=== PATIENT | male | born 1950 | race Caucasian/White ===

== ENCOUNTER 2019-12-11 16:37 | Inpatient (IN) ==
[2019-12-11] MEDS ORDERED: 0.9 % SODIUM CHLORIDE 1,000 ML IV ONE (18:06)
--- NOTE | 2019-12-11 18:25 | XRay Report ---
CLINICAL INFORMATION: weakness, fatigue COMPARISON: 09/09/2019 FINDINGS: Heart size, mediastinum and pulmonary vessels are normal. Minor bibasilar airspace disease likely atelectasis. No effusions IMPRESSION: Minor bibasilar atelectasis Interpreted and Authenticated by: Simon Horta 12/11/19
--- NOTE | 2019-12-11 18:55 | Emergency Department Note ---
Weakness HPI - General Chief complaint: Cold/Flu Symptoms Stated complaint: Possible hernia,generalized weakness Time Seen by Provider: 12/11/19 18:06 Source: patient Mode of arrival: ambulatory Limitations: no limitations - History of Present Illness HPI Narrative: 69-year-old male complaining of general malaise fatigue for the last day or so. Unclear if he has had a fever. No cough but notes chronic shortness of breath with known COPD. Not on oxygen. Not been eating or drinking much. His arthritis is been acting up as well and he is having some pain in his elbows which is mild Also complaining of a new hernia in his left groin - Related Data Home Medications Medication Instructions Recorded Confirmed albuterol sulfate 90 mcg/actuation 1 puff INHALATION Q4H PRN g 10/01/17 12/11/19 aerosol inhaler multivitamin 1 tab PO QDAY 07/22/18 12/11/19 hydrocodone 10 mg-acetaminophen 1 tab PO QID PRN 10/30/18 12/11/19 325 mg tablet sertraline 100 mg tablet 100 mg PO QDAY 10/30/18 12/11/19 apixaban 5 mg tablet 5 mg PO BID 12/26/18 12/11/19 cetirizine 10 mg tablet 10 mg PO QDAY PRN tab 06/25/19 12/11/19 losartan 25 mg tablet 25 mg PO BID tab 08/27/19 12/11/19 verapamil 120 mg tablet 120 mg PO QDAY PRN tab 08/27/19 12/11/19 Previous Rx's Medication Instructions Recorded budesonide-formoterol HFA 160 2 puff INHALATION BID #30.6 g 02/25/19 mcg-4.5 mcg/actuation aerosol inhaler tiotropium bromide 18 mcg capsule 1 cap INHALATION QDAY #90 puff 06/25/19 with inhalation device folic acid 1 mg tablet 1 mg PO QDAY #30 tab 08/26/19 methotrexate sodium 2.5 mg tablet 20 mg PO QWEEK #32 tab 08/26/19 etanercept 50 mg/mL (1 mL) 50 mg SUBCUT QWEEK #3.92 ml 10/19/19 subcutaneous syringe Allergies Allergy/AdvReac Type Severity Reaction Status Date / Time House Dust AdvReac Congested Verified 12/11/19 16:37 hay fever AdvReac Intermediate Watery Eye Uncoded 03/25/19 08:09 Review of Systems All systems ED: reviewed and negative except as stated. Past Medical History - Past Medical History Attestation: Yes: The following information was validated with the patient. [facility] Narrative: Family History (Last Reviewed 10/19/19 @ 10:52 by SCARLETT Gamble) Mother Cancer Malignant tumor of breast Father Diabetes mellitus Medical History (Last Reviewed 10/19/19 @ 10:52 by SCARLETT Gamble) Encounter for long-term current use of high risk medication (Acute) Immunocompromised state due to drug therapy (Chronic) Rheumatoid arthritis (Acute) CHF (congestive heart failure) (Chronic) Chronic renal failure, stage 3 (moderate) (Chronic) Chronic obstructive lung disease (Chronic) Sepsis (Chronic) Essential hypertension (Chronic) Hyperlipidemia (Chronic) Trigger finger of right hand (Acute) Tubulovillous adenoma (Chronic) History of chicken pox (Chronic) History of tobacco abuse (Chronic) Prediabetes (Chronic) Dysphagia (Chronic) Rectal polyp (Chronic) Acute exacerbation of chronic obstructive pulmonary disease (COPD) (Chronic) Allergic rhinitis (Chronic) Hereditary essential tremor (Chronic) Depressive disorder (Chronic) Overweight (Chronic) Hoarseness of voice (Chronic) History of alcoholism (Chronic) Pneumonitis (Chronic) GERD (gastroesophageal reflux disease) (Chronic) Adenomatous polyp of colon (Chronic) Renal failure (Chronic) Bilateral pleural effusion (Chronic) Osteomyelitis of right foot (Chronic) Positive nasal culture for methicillin resistant Staphylococcus aureus (Chronic) Tarsal tunnel syndrome of right side (Chronic) Left rotator cuff tear (Chronic) Arthritis of right shoulder region (Chronic) Arthritis of right subtalar joint (Chronic) Ankle fracture, right (Chronic) Asthma (Chronic) Knee pain, bilateral (Chronic) detention (current) use of systemic steroids (Chronic) CRP elevated (Chronic) Polyarthralgia (Acute) Inflammatory arthritis (Chronic) Supraspinatus tendon tear (Chronic) Ankle joint pain (Chronic) Shoulder joint pain (Chronic) Arthritis (Chronic) Localized, primary osteoarthritis of hand (Chronic) Atrial flutter (Chronic) Paroxysmal atrial fibrillation (Chronic) Hearing loss (Chronic) Cataract (Chronic) Tobacco dependence syndrome (Chronic) Serrated polyp of colon (Chronic) Basal cell carcinoma of skin (Chronic) Elevated erythrocyte sedimentation rate (Chronic) Past Surgical History (Last Reviewed 10/19/19 @ 10:52 by SCARLETT Gamble) History of appendectomy (Chronic 02/11/16) History of colonoscopy (Chronic 02/10/16) History of esophagogastroduodenoscopy (Chronic ~2015) History of incision and drainage (Chronic) History of inguinal hernia repair (Chronic ~2000) History of lung surgery (Chronic) History of orthopedic surgery (Chronic ~2016) History of surgery (Chronic) History of tonsillectomy (Chronic) S/P debridement (Chronic) S/p reverse total shoulder arthroplasty (Chronic 05/01/16) Psychiatric history: Reports: anxiety, depression - Social History smoking status: Former smoker Alcohol use: Reports: Rarely Drug use: Reports: none. Denies: marijuana Physical Exam He is able to sit up stand and move around without difficulty. Normocephalic atraumatic. Conjunctive are clear sclera white nonicteric. No nasal discharge or congestion. Oropharynx dry buccal mucosa. Posterior pharynx is clear. Neck is supple without lymphadenopathy or thyromegaly. Heart is regular rate and rhythm no murmur appreciated. Lungs are clear to auscultation bilaterally without wheezes rales rhonchi or respiratory distress. Abdomen is soft nontender nondistended. It does look like he has a new hernia on the left groin area which is mildly tender but not erythematous. It is reducible. No pedal edema. Alert and oriented Limitations: no limitations Course Vital Signs Temperature 97.8 F 12/11/19 16:37 Pulse Rate 70 12/11/19 16:37 Respiratory Rate 20 12/11/19 16:37 Blood Pressure 124/78 12/11/19 16:37 Pulse Oximetry (%) 95 12/11/19 16:37 Temperature 98.3 F 12/12/19 00:00 Pulse Rate 53 L 12/12/19 00:00 Respiratory Rate 20 12/12/19 00:00 Blood Pressure 117/67 12/12/19 00:00 Pulse Oximetry (%) 94 12/12/19 00:00 Weakness - Lab Data Lab results reviewed: Yes I reviewed the patient's lab results. Result diagrams: 12/11/19 18:20 12/11/19 18:20 Lab Results 12/11/19 12/11/19 12/11/19 Range/Units 18:20 18:20 18:20 WBC 18.8 H (4.50-11.00) K/mcL RBC 5.09 (4.63-6.08) M/mcL Hgb 13.8 (13.7-17.5) g/dL Hct 43.8 (40.1-51.0) % MCV 86.1 (80.0-100.0) fL MCH 27.1 (26.0-34.0) pg MCHC 31.5 (31.0-36.0) g/dL RDW 17.4 H (11.5-14.5) % Plt Count 278 (140-440) K/mcL MPV 10.6 H (7.4-10.4) fL Gran % 79.2 H (38.0-78.0) % Lymph % (Auto) 11.0 L (15.5-49.0) % [place] % (Auto) 9.3 (1.0-12.0) % Eos % (Auto) 0.2 (0.0-7.0) % Baso % (Auto) 0.3 (0.0-2.0) % Gran # 14.87 H (1.80-8.00) K/mcL Lymph # (Auto) 2.06 (1.50-4.80) K/mcL [place] # (Auto) 1.74 H (0.10-0.90) K/mcL Eos # (Auto) 0.03 (0.00-0.70) K/mcL Baso # (Auto) 0.06 (0.00-0.30) K/mcL VBG Lactic Acid 0.6 (0.5-2.0) mmol/L Sodium 134 (133-145) mmol/L Potassium 4.0 (3.3-5.1) mmol/L Chloride 101 (96-108) mmol/L Carbon Dioxide 20 L (22-30) mmol/L Anion Gap 13.0 (8-16) BUN 16 (8-23) mg/dl Creatinine 0.9 (0.7-1.2) mg/dl GFR Calculation 87 Glucose 105 (70-105) mg/dL Calcium 8.7 (8.6-10.4) mg/dl Magnesium 1.9 (1.6-2.5) mg/dL Total Bilirubin 0.4 (0.0-1.0) mg/dL AST 25 (0-37) U/l ALT 23 (0-40) U/l Alkaline Phosphatase 82 (39-117) U/L Troponin T (0-0.03) ng/ml NT-Pro-B Natriuret Pep 426.5 H (0-125) pg/ml Total Protein 7.2 (5.9-8.4) gm/dL Albumin 4.2 (3.2-5.2) gm/dL Globulin 3.0 (2.2-3.7) gm/dL Albumin/Globulin Ratio 1.4 (1.0-2.3) 12/11/19 Range/Units 18:20 WBC (4.50-11.00) K/mcL RBC (4.63-6.08) M/mcL Hgb (13.7-17.5) g/dL Hct (40.1-51.0) % MCV (80.0-100.0) fL MCH (26.0-34.0) pg MCHC (31.0-36.0) g/dL RDW (11.5-14.5) % Plt Count (140-440) K/mcL MPV (7.4-10.4) fL Gran % (38.0-78.0) % Lymph % (Auto) (15.5-49.0) % [place] % (Auto) (1.0-12.0) % Eos % (Auto) (0.0-7.0) % Baso % (Auto) (0.0-2.0) % Gran # (1.80-8.00) K/mcL Lymph # (Auto) (1.50-4.80) K/mcL [place] # (Auto) (0.10-0.90) K/mcL Eos # (Auto) (0.00-0.70) K/mcL Baso # (Auto) (0.00-0.30) K/mcL VBG Lactic Acid (0.5-2.0) mmol/L Sodium (133-145) mmol/L Potassium (3.3-5.1) mmol/L Chloride (96-108) mmol/L Carbon Dioxide (22-30) mmol/L Anion Gap (8-16) BUN (8-23) mg/dl Creatinine (0.7-1.2) mg/dl GFR Calculation Glucose (70-105) mg/dL Calcium (8.6-10.4) mg/dl Magnesium (1.6-2.5) mg/dL Total Bilirubin (0.0-1.0) mg/dL AST (0-37) U/l ALT (0-40) U/l Alkaline Phosphatase (39-117) U/L Troponin T < 0.01 (0-0.03) ng/ml NT-Pro-B Natriuret Pep (0-125) pg/ml Total Protein (5.9-8.4) gm/dL Albumin (3.2-5.2) gm/dL Globulin (2.2-3.7) gm/dL Albumin/Globulin Ratio (1.0-2.3) Influenza swabs are negative - Radiology Data Radiology results reviewed: Yes I reviewed the patient's radiology results. Chest x-ray shows no evidence of infiltrate CT scan in the abdomen and pelvis with contrast shows sigmoid colon and a left inguinal hernia which is where he is having pain. No evidence of obstruction seen. He does have some calcifications of his gallbladder as well but he is not having pain in the right upper quadrant - EKG Data EKG attestation: Yes I reviewed and interpreted this EKG., Yes There are no EKG findings of acute coronary syndrome, Yes This EKG will be read by light fixture servicer EKG results narrative: Sinus bradycardia noted Disposition Pt seen by FLORICULTURE PROFESSOR/PA only: No Clinical Impression: Incarcerated hernia Summary: Work-up for general malaise and weakness. Chest x-ray and EKG unrevealing flu swab ordered Flu swab is negative. Laboratory is unrevealing except for significant leukocytosis. Lactic acid is pending CT scan is ordered for the significant leukocytosis as I do not have another r roya for that. I reexamined his belly and he still operator brandy in the left lower quadrant without erythema. Obvious hernia there. He is mildly diaphoretic CT scan shows large direct left inguinal hernia with sigmoid colon there. No evidence of obstruction. Vital signs remained stable-always has a low pulse and reports a heart rate of 40 is not uncommon for him. It is noted that he is on Enbrel as well as methotrexate for rheumatoid arthritis; apixaban for atrial flutter I discussed the case with Dr. Mark Schaefer, general surgeon. He agreed to accept the patient for further care and evaluation in the hospital. He expects to have to do surgery on this patient in the morning so he asked me to keep him n.p.o. We will do Zosyn to cover him in case of infection as well as keep him comforta ble with pain medicine nausea medicine and IV fluids. I will write holding orders Disposition: Home, Self-Care Condition: Fair
[2019-12-11 19:25] LABS: Basophils # (Auto) 0.06 K/mcL (0.00-0.30); Basophils % (Auto) 0.3 % (0.0-2.0); Eosinophils # (Auto) 0.03 K/mcL (0.00-0.70); Eosinophils % (Auto) 0.2 % (0.0-7.0); Granulocytes % (Auto) 79.2 % (38.0-78.0); Hematocrit 43.8 % (40.1-51.0); Hemoglobin 13.8 g/dL (13.7-17.5); Lymphocytes # (Auto) 2.06 K/mcL (1.50-4.80); Mean Cell Volume 86.1 fL (80.0-100.0); Mean Corpuscular HGB Conc 31.5 g/dL (31.0-36.0); Mean Platelet Volume 10.6 fL (7.4-10.4); Monocytes # (Auto) 1.74 K/mcL (0.10-0.90); Monocytes % (Auto) 9.3 % (1.0-12.0); Platelet Count 278 K/mcL (140-440); RBC 5.09 M/mcL (4.63-6.08); Red Cell Distribution Width 17.4 % (11.5-14.5); WBC 18.8 K/mcL (4.50-11.00)
[2019-12-11 19:44] LABS: proBNP 426.5 pg/ml (0-125)
[2019-12-11 19:47] LABS: ALT/SGPT 23 U/l (0-40); AST/SGOT 25 U/l (0-37); Albumin 4.2 gm/dL (3.2-5.2); Albumin/Globulin Ratio 1.4 (1.0-2.3); Alkaline Phosphatase 82 U/L (39-117); Bilirubin,Total 0.4 mg/dL (0.0-1.0); Blood Urea Nitrogen 16 mg/dl (8-23); Calcium 8.7 mg/dl (8.6-10.4); Carbon Dioxide 20 mmol/L (22-30); Chloride 101 mmol/L (96-108); Glomerular Filtration Rate 87; Glucose 105 mg/dL (70-105)
[2019-12-11] MEDS ORDERED: PIPERACILLIN SODIUM/TAZOBACTAM 3.375 GM in DEXTROSE 5% IN WATER 50 ML IV ONE (23:19)
[2019-12-11] MEDS ORDERED: ONDANSETRON 4 MG/2 ML VIAL IV PRN (23:27)
[2019-12-11] MEDS ORDERED: ALBUTEROL SULFATE 2.5 MG/3 ML NEBULIZER NEB PRN (23:34)
[2019-12-12] MEDS: 0.9 % SODIUM CHLORIDE 1,000 ML IV SCH ×5 (00:20→14:19)
--- NOTE | 2019-12-12 04:16 | Cat Scan Report ---
CLINICAL INFORMATION: Left lower quadrant pain COMPARISON: None. TECHNIQUE: Following enteric contrast, 80 cc of Isovue-370 were injected intravenously, and 60 seconds later, 0.625 mm helical slices were obtained from the mid heart through the subtrochanteric regions. Following reconstruction, 2.5 mm sagittal, coronal and axial reformatted images were processed and reviewed at bone, lung and soft tissue windows. Five minutes later, 0.625 mm helical slices were obtained from the mid heart through the kidneys and viewed at soft tissue windows.The exam was performed using radiation dose optimization techniques including, but not limited to, automated exposure control, adjustment of the mA and/or kV according to patient size and use of iterative reconstruction technique. FINDINGS: Lung bases show moderate patchy mixed interstitial /alveolar infiltrate in the right lower lobe suggesting developing pneumonia. No effusion. The visualized heart is grossly normal. Abdominal images show the liver is unremarkable. There are multiple small stones, ranging up to 3 mm, within the gallbladder. The gallbladder is, otherwise, normal - no wall thickening or pericholecystic fluid. The intrahepatic and common bile ducts are normal: CBD is 5 mm. Both kidneys, adrenal glands, spleen, pancreas and aorta, including aortic branches, are normal in size, configuration and attenuation without focal lesion. The inferior vena cava is grossly normal. Retroaortic left renal vein appreciated. Pelvic images show urinary bladder, prostate and seminal vesicles are unremarkable. There is a large (12 x 3 cm) left inguinal hernia containing a segment of the proximal sigmoid colon. It does not result in colonic obstruction. There is no evidence of strangulation. Few sigmoid diverticuli appreciated but the remaining colon is unremarkable. Appendectomy changes appreciated.. Small bowel and stomach are grossly normal. There is no free air, free fluid or adenopathy. Bone windows show no osseous abnormality IMPRESSION: 1. Large left inguinal hernia containing a segment of proximal sigmoid colon. No CT evidence for strangulation or bowel obstruction, however. 2. Cholelithiasis 3. Moderate patchy airspace disease in the right lower lobe that suspect developing pneumonia. Consider short-term follow-up chest radiographs Interpreted and Authenticated by: Simon Horta 12/12/19
--- NOTE | 2019-12-12 11:48 | General Surg History&Physical ---
History of Present Illness Patient information: Note initiated : 12/12/19 at 11:46 am Service Date, if different from initiated Date: [] Patient: Gavin Nunez a 69 y/o M admitted on 12/11/19 for Possible hernia,generalized weakness. Chief Complaint: [] HPI: Mr. Nunez is a 69 year old M admitted for lethargy, leukocytosis, left groin pain. The patient has a history of diffuse pain of his joints and pain in the left groin over a large left inguinal hernia. He has had the hernia for quite some time. He has worse discomfort with cough and movement. He denies nausea, vomiting. He has chronic bronchitis and COPD and his cough is not exacerbated over the past few weeks. He denies urgency or dysuria. He has been afebrile. White count is 18,000, but he is afebrile. Patient admitted for evaluation for possible incarceration of his left inguinal hernia. However, the hernia is actually freely movable and reducible. Review of Systems - Constitutional fatigue, malaise, snoring, weakness - Cardiovascular dyspnea, dyspnea on exertion, irregular heart rhythm, palpatations, rapid heart rate - Respiratory cough, snoring - Gastrointestinal abdominal pain, bloating - Genitourinary nocturia - Musculoskeletal arthralgias, back pain, myalgias, stiffness - Integumentary no pruritus, no rash - Neurological tremor(s) - Psychiatric anxiety, depression - Endocrine fatigue - Hematologic/Lymphatic no easy bleeding, no lymphadenopathy - Allergic/Immunologic no tongue swelling, no throat swelling, no uticaria, no wheezing, no lip swelling Past History Past medical history: Chronic obstructive lung disease. Seropositive rheumatoid arthritis. Compensated congestive heart failure. Chronic renal failure stage III. History of colon polyps. Essential tremors. Depression with anxiety. Gastroesophageal reflux disease. Chronic steroid use. Immunocompromised drug use long-term. Paroxysmal atrial fibrillation and flutter Past surgical history: Appendectomy. Right inguinal hernia repair. Fusion right ankle. Right and left total shoulder arthroplasty Past family history: Mother due to complications of breast cancer Father of complications of diabetes Past social history: Former smoker. Occasional alcohol use. Denies drug use Medications and Allergies Home Medications Medication Instructions Recorded Confirmed Type albuterol sulfate 90 mcg/actuation 1 puff INHALATION Q4H PRN g 10/01/17 12/12/19 History aerosol inhaler multivitamin 1 tab PO QDAY 07/22/18 12/11/19 History hydrocodone 10 mg-acetaminophen 1 tab PO QID PRN 10/30/18 12/11/19 History 325 mg tablet sertraline 100 mg tablet 100 mg PO QDAY 10/30/18 12/12/19 History apixaban 5 mg tablet 5 mg PO BID 12/26/18 12/12/19 History budesonide-formoterol HFA 160 2 puff INHALATION BID #30.6 g 02/25/19 12/12/19 Rx mcg-4.5 mcg/actuation aerosol inhaler cetirizine 10 mg tablet 10 mg PO QDAY PRN tab 06/25/19 12/11/19 History tiotropium bromide 18 mcg capsule 1 cap INHALATION QDAY #90 puff 06/25/19 12/12/19 Rx with inhalation device folic acid 1 mg tablet 1 mg PO QDAY #30 tab 08/26/19 12/11/19 Rx methotrexate sodium 2.5 mg tablet 20 mg PO QWEEK #32 tab 08/26/19 12/11/19 Rx losartan 25 mg tablet 25 mg PO BID tab 08/27/19 12/12/19 History verapamil 120 mg tablet 120 mg PO QDAY PRN tab 08/27/19 12/11/19 History etanercept 50 mg/mL (1 mL) 50 mg SUBCUT QWEEK #3.92 ml 10/19/19 12/12/19 Rx subcutaneous syringe Allergies Allergy/AdvReac Type Severity Reaction Status Date / Time House Dust AdvReac Congested Verified 12/11/19 16:37 hay fever AdvReac Intermediate Watery Eye Uncoded 03/25/19 08:09 Exam Temp Pulse Resp BP Pulse Ox 99 F 48 L 20 120/69 94 12/12/19 07:11 12/12/19 07:11 12/12/19 07:11 12/12/19 07:11 12/12/19 07:11 - General physical appearance well developed, well nourished, no distress, moderate pain, chronically ill - Eyes PERRL, normal ocular movement - ENT normal pinna, normal nares, normal mucosa, no congestion, decreased hearing - Head Head exam IM: Present: atraumatic, normal inspection, normocephalic - Neck no masses, no bruits, trachea midline, no lymphadenopathy, no venous distension - Cardiovascular Cardiovascular exam IM: Present: normal rate and rhythm, bradycardia, RRR, +S1, +S2 - Respiratory normal expansion, normal respiratory effort, clear to auscultation - Abdomen Abdomen: Present: soft, non tender, bowel sounds. Absent: distended Hernia: Present: none - Genitourinary Present: normal penis with no external lesions - Integumentary Present: no rash, no growths, no abnormal pigmentation - Neurologic Present: normal coordination, normal sensation - Musculoskeletal Present: normal gait, normal posture - Psychiatric Present: oriented to time, oriented to person, oriented to place, speech is normal, memory intact Assessment and Plan (1) Incarcerated hernia Patient is clinically stable. There is no evidence of incarcerated hernia at this time and there is no tenderness of his abdomen. Diet will be advanced and he will be monitored closely. Status: Acute (2) CHF (congestive heart failure) Status: Chronic (3) Chronic obstructive lung disease Pulmonary status is clinically stable Status: Chronic Qualifiers: COPD type: chronic bronchitis Chronic bronchitis type: simple Qualified Code(s): J41.0 - Simple chronic bronchitis (4) Chronic renal failure, stage 3 (moderate) Status: Chronic (5) Essential hypertension Status: Chronic
[2019-12-12] MEDS ORDERED: ALBUTEROL SULFATE 1 PUFF INHALER INH PRN (11:55)
[2019-12-12] MEDS: HYDROcodone/APAP 10/325MG TABLET PO PRN ×2 (14:13→20:22)
[2019-12-12] MEDS: Budesonide/Formoterol Fumarate [Symbicort 160-4.5 MCG] Inhaler PO SCH (20:22)
[2019-12-12] MEDS: LOSARTAN 25 MG TABLET PO SCH (20:22)
[2019-12-12] MEDS: APIXABAN 5 MG TABLET PO SCH (20:22)
[2019-12-13] MEDS: HYDROcodone/APAP 10/325MG TABLET PO PRN ×6 (00:27→22:58)
[2019-12-13] MEDS: 0.9 % SODIUM CHLORIDE 1,000 ML IV SCH ×2 (03:57→18:29)
[2019-12-13 06:38] LABS: Basophils # (Auto) 0.03 K/mcL (0.00-0.30); Basophils % (Auto) 0.3 % (0.0-2.0); Eosinophils # (Auto) 0.23 K/mcL (0.00-0.70); Eosinophils % (Auto) 2.3 % (0.0-7.0); Granulocytes % (Auto) 71.2 % (38.0-78.0); Hematocrit 36.8 % (40.1-51.0); Hemoglobin 11.7 g/dL (13.7-17.5); Lymphocytes # (Auto) 1.36 K/mcL (1.50-4.80); Lymphocytes % (Auto) 13.5 % (15.5-49.0); Mean Corpuscular HGB Conc 31.8 g/dL (31.0-36.0); Mean Platelet Volume 10.6 fL (7.4-10.4); Monocytes # (Auto) 1.28 K/mcL (0.10-0.90); Monocytes % (Auto) 12.7 % (1.0-12.0); Platelet Count 211 K/mcL (140-440); RBC 4.28 M/mcL (4.63-6.08); Red Cell Distribution Width 17.3 % (11.5-14.5); WBC 10.1 K/mcL (4.50-11.00)
[2019-12-13] MEDS: Budesonide/Formoterol Fumarate [Symbicort 160-4.5 MCG] Inhaler PO SCH ×2 (09:36→21:01)
[2019-12-13] MEDS: LOSARTAN 25 MG TABLET PO SCH ×2 (09:36→21:01)
[2019-12-13] MEDS: SERTRALINE 100 MG TABLET PO SCH (09:36)
[2019-12-13] MEDS: APIXABAN 5 MG TABLET PO SCH (09:36)
[2019-12-13] MEDS: TIOTROPIUM BROMIDE 18 MCG INHALANT INH SCH (10:07)
--- NOTE | 2019-12-13 14:15 | General Surgery Progress Note ---
Subjective Patient reports: feels better, still having pain, pain is less, tolerating a regular diet, flatus, no bowel movement, afebrile Narrative: Note initiated : 12/13/19 at 2:14 pm Service Date, if different from initiated Date: [] Patient: Gavin Nunez 69 y/o M admitted on 12/11/19 for Possible hernia,generalized weakness. Chief Complaint: [Patient continues to have pain in his left groin area and left lower quadrant. He has worsening pain in the area that he stands his hernia enlarges. He is tolerating diet without difficulty. White blood count is decreased to 10.1. Hemoglobin 11.7, hematocrit 36.8, lactic acid 0.5.] Objective Temp Pulse Resp BP Pulse Ox 98.0 F 48 L 16 134/64 94 12/13/19 11:39 12/13/19 11:39 12/13/19 11:39 12/13/19 11:39 12/13/19 11:39 - Additional Data Intake & Output - Last 24 hours: Intake & Output 12/11/19 12/12/19 12/13/19 12/14/19 05:59 05:59 05:59 05:59 Intake Total 1050 2688 600 Output Total 350 1300 250 Balance 700 1388 350 Weight 180 lb 195 lb - General physical appearance well developed, well nourished, no distress - Eyes PERRL, normal ocular movement - ENT normal pinna, normal nares, normal mucosa, no congestion, decreased hearing - Neck no masses, no bruits, trachea midline, no lymphadenopathy, no venous distension - Respiratory normal expansion, normal respiratory effort, clear to auscultation - Cardiovascular Cardiovascular exam: Present: normal rate and rhythm, RRR, +S1, +S2 (THIS IS SOUNDS. HIS WHITE COUNT IS WHITE COUNT DOWN TO NORMAL). Absent: JVD, tachyca rdia - Abdomen non tender, bowel sounds (present), surgical scars (none), masses (none) - Integumentary no rash, no growths, no abnormal pigmentation - Neurologic normal coordination, normal sensation - Musculoskeletal normal gait, normal posture - Psychiatric oriented to time (that I read it out last night about 10:00 areolar muscle was only enough he got home by then), oriented to person, oriented to place, speech is normal, memory intact - Labs 12/13/19 05:35 12/11/19 18:20 Assessment and Plan (1) Incarcerated hernia Status: Acute Assessment and plan: Patient remains symptomatic with regard to the left inguinal hernia, so he is counseled for left inguinal hernia repair tomorrow. Current Visit: Yes (2) CHF (congestive heart failure) Status: Chronic Current Visit: No (3) Chronic obstructive lung disease Status: Chronic Current Visit: No (4) Chronic renal failure, stage 3 (moderate) Status: Chronic Current Visit: No (5) Essential hypertension Status: Chronic Current Visit: No - Time Spent With Patient Total time spent is greater than 50% in coordination of care (as documented) at patient's floor/unit and/or counseling patient:
--- NOTE | 2019-12-13 14:41 | XRay Report ---
CLINICAL INFORMATION: preop evaluation COMPARISON: 09/09/2019 and 12/11/2019 plain films FINDINGS: The heart is normal size. Mediastinum and pulmonary vessels are unremarkable. Minor airspace disease in the right infrahilar region is likely atelectasis. No effusion IMPRESSION: Mild airspace disease right infrahilar region - likely atelectasis Interpreted and Authenticated by: Simon Horta 12/13/19
[2019-12-14] MEDS: HYDROcodone/APAP 10/325MG TABLET PO PRN ×4 (03:19→19:28)
[2019-12-14 06:36] LABS: Basophils # (Auto) 0.06 K/mcL (0.00-0.30); Basophils % (Auto) 0.6 % (0.0-2.0); Eosinophils # (Auto) 0.23 K/mcL (0.00-0.70); Eosinophils % (Auto) 2.4 % (0.0-7.0); Granulocytes % (Auto) 70.5 % (38.0-78.0); Hematocrit 34.7 % (40.1-51.0); Hemoglobin 10.9 g/dL (13.7-17.5); Lymphocytes # (Auto) 1.41 K/mcL (1.50-4.80); Lymphocytes % (Auto) 14.7 % (15.5-49.0); Mean Cell Volume 87.2 fL (80.0-100.0); Mean Corpuscular HGB Conc 31.4 g/dL (31.0-36.0); Mean Platelet Volume 10.8 fL (7.4-10.4); Monocytes # (Auto) 1.13 K/mcL (0.10-0.90); Monocytes % (Auto) 11.8 % (1.0-12.0); Platelet Count 211 K/mcL (140-440); RBC 3.98 M/mcL (4.63-6.08); Red Cell Distribution Width 17.3 % (11.5-14.5); WBC 9.6 K/mcL (4.50-11.00)
[2019-12-14 07:06] LABS: ALT/SGPT 14 U/l (0-40); AST/SGOT 16 U/l (0-37); Albumin 3.1 gm/dL (3.2-5.2); Albumin/Globulin Ratio 1.2 (1.0-2.3); Alkaline Phosphatase 69 U/L (39-117); Bilirubin,Direct < 0.2 mg/dL (0.0-0.3); Bilirubin,Total 0.4 mg/dL (0.0-1.0); Blood Urea Nitrogen 10 mg/dl (8-23); Calcium 8.4 mg/dl (8.6-10.4); Carbon Dioxide 21 mmol/L (22-30); Chloride 104 mmol/L (96-108); Globulin 2.6 gm/dL (2.2-3.7); Glomerular Filtration Rate 92; Glucose 102 mg/dL (70-105); Lactate Dehydrogenase 180 U/L (94-250); Phosphorous 3.1 mg/dL (2.7-4.5); Triglycerides 61 mg/dl (<150); Uric Acid 3.4 mg/dL (2.5-8.0)
[2019-12-14 07:07] LABS: INR 1.1 (0.9-1.1); Prothrombin Time 13.9 sec (11.9-14.5)
[2019-12-14] MEDS: SERTRALINE 100 MG TABLET PO SCH (08:39)
[2019-12-14] MEDS: LOSARTAN 25 MG TABLET PO SCH ×2 (08:39→20:57)
[2019-12-14] MEDS: TIOTROPIUM BROMIDE 18 MCG INHALANT INH SCH (08:40)
[2019-12-14] MEDS: Budesonide/Formoterol Fumarate [Symbicort 160-4.5 MCG] Inhaler PO SCH ×2 (08:40→20:57)
[2019-12-14] MEDS: 0.9 % SODIUM CHLORIDE 1,000 ML IV SCH ×2 (10:39→19:22)
--- NOTE | 2019-12-14 16:30 | General Surgery Progress Note ---
Subjective Patient reports: still having pain, tolerating a regular diet, flatus, bowel movement, afebrile Narrative: Note initiated : 12/14/19 at 4:26 pm Service Date, if different from initiated Date: [] Patient: Gavin Nunez 69 y/o M admitted on 12/11/19 for Possible hernia,generalized weakness. Chief Complaint: [ patient is very symptomatic. He has moderately severe left groin pain. The plan was to try to do his surgery today, but it was noted that he had been on APIXABAN this will need to be withheld for at least 48 hours prior to surgery. Because of severe symptoms Anticipate that he will not do well at home , so patient will be maintained as an inpatient. He will receive Lovenox until Saturday p.m. as a bridging anticoagulant. The Lovenox will be withheld and midnight and he will have surgery on his hernia in the p.m. on November 2019. There are no other options at this time because of his symptom complex.] Objective Temp Pulse Resp BP Pulse Ox 98.2 F 75 18 138/76 96 12/14/19 12:00 12/14/19 12:00 12/14/19 12:00 12/14/19 12:00 12/14/19 12:00 - Additional Data Intake & Output - Last 24 hours: Intake & Output 12/12/19 12/13/19 12/14/19 12/15/19 05:59 05:59 05:59 05:59 Intake Total 1050 3688 2610 1000 Output Total 350 1300 775 300 Balance 700 2388 1835 700 Weight 180 lb 195 lb 198 lb 8 oz - General physical appearance moderate distress, moderate pain - Eyes PERRL, normal ocular movement - ENT normal pinna, normal nares, normal mucosa, no congestion, decreased hearing - Neck no masses, no bruits, trachea midline, no lymphadenopathy, no venous distension - Respiratory normal expansion, normal respiratory effort, clear to auscultation - Cardiovascular Cardiovascular exam: Present: irregular rhythm, +S1, +S2. Absent: tachycardia - Abdomen tender (mild left lower quadrant), bowel sounds (present), surgical scars (none), masses (none) Hernia: inguinal (. Large tender left inguinal hernia) - Integumentary no rash, no growths, no abnormal pigmentation - Neurologic normal coordination, normal sensation - Musculoskeletal normal gait, normal posture - Psychiatric oriented to time, oriented to person, oriented to place, speech is normal, memory intact - Labs 12/14/19 05:20 12/14/19 05:20 Diabetes panel 12/14/19 Range/Units 05:20 Sodium 135 (133-145) mmol/L Potassium 3.7 (3.3-5.1) mmol/L Chloride 104 (96-108) mmol/L Carbon Dioxide 21 L (22-30) mmol/L BUN 10 (8-23) mg/dl Creatinine 0.8 (0.7-1.2) mg/dl Glucose 102 (70-105) mg/dL Calcium 8.4 L (8.6-10.4) mg/dl AST 16 (0-37) U/l ALT 14 (0-40) U/l Alkaline Phosphatase 69 (39-117) U/L Total Protein 5.7 L (5.9-8.4) gm/dL Albumin 3.1 L (3.2-5.2) gm/dL Triglycerides 61 (<150) mg/dl Calcium panel 12/14/19 Range/Units 05:20 Calcium 8.4 L (8.6-10.4) mg/dl Phosphorus 3.1 (2.7-4.5) mg/dL Albumin 3.1 L (3.2-5.2) gm/dL Pituitary panel 12/14/19 Range/Units 05:20 Sodium 135 (133-145) mmol/L Potassium 3.7 (3.3-5.1) mmol/L Chloride 104 (96-108) mmol/L Carbon Dioxide 21 L (22-30) mmol/L BUN 10 (8-23) mg/dl Creatinine 0.8 (0.7-1.2) mg/dl Glucose 102 (70-105) mg/dL Calcium 8.4 L (8.6-10.4) mg/dl Adrenal panel 12/14/19 Range/Units 05:20 Sodium 135 (133-145) mmol/L Potassium 3.7 (3.3-5.1) mmol/L Chloride 104 (96-108) mmol/L Carbon Dioxide 21 L (22-30) mmol/L BUN 10 (8-23) mg/dl Creatinine 0.8 (0.7-1.2) mg/dl Glucose 102 (70-105) mg/dL Calcium 8.4 L (8.6-10.4) mg/dl Total Bilirubin 0.4 (0.0-1.0) mg/dL AST 16 (0-37) U/l ALT 14 (0-40) U/l Alkaline Phosphatase 69 (39-117) U/L Total Protein 5.7 L (5.9-8.4) gm/dL Albumin 3.1 L (3.2-5.2) gm/dL Assessment and Plan (1) Incarcerated hernia Status: Acute Assessment and plan: Patient remains symptomatic with regard to the left inguinal hernia,he is counseled for left inguinal hernia repair, but will need to have one more day off of his anticoagulants before surgery can be performed. Tentatively, surgery is scheduled for SaturdayNovember 2019. Current Visit: Yes (2) CHF (congestive heart failure) Status: Chronic Assessment and plan: Clinically stable at this time Current Visit: No (3) Chronic obstructive lung disease Status: Chronic Assessment and plan: No acute exacerbation Current Visit: No (4) Chronic renal failure, stage 3 (moderate) Status: Chronic Current Visit: No (5) Essential hypertension Status: Chronic Current Visit: No - Time Spent With Patient Total time spent is greater than 50% in coordination of care (as documented) at patient's floor/unit and/or counseling patient:
[2019-12-14] MEDS ORDERED: HYDROmorphone 2 MG/ML VIAL IV PRN (19:02)
[2019-12-14] MEDS: 0.9 % SODIUM CHLORIDE 10 ML SYRINGE IV SCH (21:01)
[2019-12-15] MEDS: HYDROcodone/APAP 10/325MG TABLET PO PRN ×4 (01:01→19:45)
[2019-12-15 06:47] LABS: Basophils # (Auto) 0.05 K/mcL (0.00-0.30); Basophils % (Auto) 0.7 % (0.0-2.0); Eosinophils # (Auto) 0.24 K/mcL (0.00-0.70); Eosinophils % (Auto) 3.2 % (0.0-7.0); Hematocrit 36.8 % (40.1-51.0); Hemoglobin 11.6 g/dL (13.7-17.5); Lymphocytes # (Auto) 1.55 K/mcL (1.50-4.80); Lymphocytes % (Auto) 20.6 % (15.5-49.0); Mean Cell Volume 85.8 fL (80.0-100.0); Mean Corpuscular HGB Conc 31.5 g/dL (31.0-36.0); Mean Platelet Volume 10.9 fL (7.4-10.4); Monocytes # (Auto) 1.17 K/mcL (0.10-0.90); Monocytes % (Auto) 15.5 % (1.0-12.0); Platelet Count 229 K/mcL (140-440); RBC 4.29 M/mcL (4.63-6.08); WBC 7.5 K/mcL (4.50-11.00)
[2019-12-15 07:25] LABS: ALT/SGPT 14 U/l (0-40); AST/SGOT 13 U/l (0-37); Albumin 3.3 gm/dL (3.2-5.2); Albumin/Globulin Ratio 1.2 (1.0-2.3); Alkaline Phosphatase 72 U/L (39-117); Bilirubin,Direct < 0.2 mg/dL (0.0-0.3); Bilirubin,Total 0.4 mg/dL (0.0-1.0); Blood Urea Nitrogen 9 mg/dl (8-23); Calcium 8.7 mg/dl (8.6-10.4); Carbon Dioxide 24 mmol/L (22-30); Chloride 102 mmol/L (96-108); Globulin 2.8 gm/dL (2.2-3.7); Glomerular Filtration Rate 92; Glucose 95 mg/dL (70-105); Lactate Dehydrogenase 167 U/L (94-250); Phosphorous 3.5 mg/dL (2.7-4.5); Triglycerides 71 mg/dl (<150); Uric Acid 3.6 mg/dL (2.5-8.0)
[2019-12-15] MEDS: 0.9 % SODIUM CHLORIDE 10 ML SYRINGE IV SCH ×3 (07:42→21:08)
[2019-12-15] MEDS: ENOXAPARIN 40 MG/0.4 ML SYRINGE SQ SCH (08:13)
[2019-12-15] MEDS: SERTRALINE 100 MG TABLET PO SCH (08:13)
[2019-12-15] MEDS: LOSARTAN 25 MG TABLET PO SCH ×2 (08:13→21:07)
[2019-12-15] MEDS: TIOTROPIUM BROMIDE 18 MCG INHALANT INH SCH (08:14)
[2019-12-15] MEDS: Budesonide/Formoterol Fumarate [Symbicort 160-4.5 MCG] Inhaler PO SCH ×2 (08:14→21:07)
--- NOTE | 2019-12-15 12:50 | General Surgery Progress Note ---
Subjective Patient reports: feels better, still having pain, flatus, bowel movement, afebrile Narrative: Note initiated : 12/15/19 at 12:48 pm Service Date, if different from initiated Date: [] Patient: Gavin Nunez 69 y/o M admitted on 12/14/19 for Possible hernia,generalized weakness. Chief Complaint: [patient is stable. He still has left groin pain with moderate swelling of the left inguinal hernia. The hernia is reduced and the swelling is slightly improved. He is counseled for left inguinal hernia repair tomorrow.] Objective Temp Pulse Resp BP Pulse Ox 98.0 F 50 L 18 148/72 96 12/15/19 08:00 12/15/19 08:00 12/15/19 08:00 12/15/19 08:00 12/15/19 08:00 - Additional Data Intake & Output - Last 24 hours: Intake & Output 12/13/19 12/14/19 12/15/19 12/16/19 05:59 05:59 05:59 05:59 Intake Total 3688 2610 2380 Output Total 1300 775 675 500 Balance 2388 1835 1705 -500 Weight 195 lb 198 lb 8 oz 206 lb - General physical appearance well developed, well nourished, no distress - Eyes PERRL, normal ocular movement - ENT normal pinna, normal nares, normal mucosa, no congestion, decreased hearing - Neck no masses, no bruits, trachea midline, no lymphadenopathy, no venous distension - Respiratory normal expansion, normal respiratory effort, clear to auscultation - Cardiovascular Cardiovascular exam: Present: normal rate and rhythm, RRR, +S1, +S2. Absent: JVD, tachycardia - Abdomen tender (tenderness , left lower quadrant and over inguinal hernia on the left side), bowel sounds (present), surgical scars (none), masses (none) Hernia: inguinal - Integumentary no rash, no growths, no abnormal pigmentation - Neurologic normal coordination, normal sensation - Musculoskeletal normal gait, normal posture - Psychiatric oriented to time, oriented to person, oriented to place, speech is normal, memory intact - Labs 12/15/19 05:24 12/15/19 05:24 Diabetes panel 12/15/19 Range/Units 05:24 Sodium 137 (133-145) mmol/L Potassium 3.8 (3.3-5.1) mmol/L Chloride 102 (96-108) mmol/L Carbon Dioxide 24 (22-30) mmol/L BUN 9 (8-23) mg/dl Creatinine 0.8 (0.7-1.2) mg/dl Glucose 95 (70-105) mg/dL Calcium 8.7 (8.6-10.4) mg/dl AST 13 (0-37) U/l ALT 14 (0-40) U/l Alkaline Phosphatase 72 (39-117) U/L Total Protein 6.1 (5.9-8.4) gm/dL Albumin 3.3 (3.2-5.2) gm/dL Triglycerides 71 (<150) mg/dl Calcium panel 12/15/19 Range/Units 05:24 Calcium 8.7 (8.6-10.4) mg/dl Phosphorus 3.5 (2.7-4.5) mg/dL Albumin 3.3 (3.2-5.2) gm/dL Pituitary panel 12/15/19 Range/Units 05:24 Sodium 137 (133-145) mmol/L Potassium 3.8 (3.3-5.1) mmol/L Chloride 102 (96-108) mmol/L Carbon Dioxide 24 (22-30) mmol/L BUN 9 (8-23) mg/dl Creatinine 0.8 (0.7-1.2) mg/dl Glucose 95 (70-105) mg/dL Calcium 8.7 (8.6-10.4) mg/dl Adrenal panel 12/15/19 Range/Units 05:24 Sodium 137 (133-145) mmol/L Potassium 3.8 (3.3-5.1) mmol/L Chloride 102 (96-108) mmol/L Carbon Dioxide 24 (22-30) mmol/L BUN 9 (8-23) mg/dl Creatinine 0.8 (0.7-1.2) mg/dl Glucose 95 (70-105) mg/dL Calcium 8.7 (8.6-10.4) mg/dl Total Bilirubin 0.4 (0.0-1.0) mg/dL AST 13 (0-37) U/l ALT 14 (0-40) U/l Alkaline Phosphatase 72 (39-117) U/L Total Protein 6.1 (5.9-8.4) gm/dL Albumin 3.3 (3.2-5.2) gm/dL Assessment and Plan (1) Incarcerated hernia Status: Acute Assessment and plan: Patient remains symptomatic with regard to the left inguinal hernia. He is scheduled for left inguinal hernia tomorrow. The Lovenox will be withheld semi- and restarted in the postoperative period. Current Visit: Yes (2) CHF (congestive heart failure) Status: Chronic Assessment and plan: Clinically stable at this time Current Visit: No (3) Chronic obstructive lung disease Status: Chronic Assessment and plan: No acute exacerbation Current Visit: No (4) Chronic renal failure, stage 3 (moderate) Status: Chronic Current Visit: No (5) Essential hypertension Status: Chronic Current Visit: No - Time Spent With Patient Total time spent is greater than 50% in coordination of care (as documented) at patient's floor/unit and/or counseling patient:
[2019-12-15] MEDS ORDERED: ceFAZolin 2 GM in DEXTROSE 5% IN WATER 50 ML IV SCH (13:00)
[2019-12-16] MEDS: HYDROcodone/APAP 10/325MG TABLET PO PRN ×3 (00:14→21:38)
[2019-12-16] MEDS: 0.9 % SODIUM CHLORIDE 10 ML SYRINGE IV SCH ×3 (05:59→21:30)
[2019-12-16] MEDS ORDERED: ceFAZolin 2 GM in DEXTROSE 5% IN WATER 50 ML IV SCH (06:00)
[2019-12-16 07:19] LABS: Basophils # (Auto) 0.05 K/mcL (0.00-0.30); Basophils % (Auto) 0.7 % (0.0-2.0); Eosinophils # (Auto) 0.26 K/mcL (0.00-0.70); Eosinophils % (Auto) 3.8 % (0.0-7.0); Hematocrit 36.7 % (40.1-51.0); Hemoglobin 11.4 g/dL (13.7-17.5); Lymphocytes # (Auto) 1.67 K/mcL (1.50-4.80); Lymphocytes % (Auto) 24.4 % (15.5-49.0); Mean Cell Volume 86.6 fL (80.0-100.0); Mean Corpuscular HGB Conc 31.1 g/dL (31.0-36.0); Mean Platelet Volume 10.3 fL (7.4-10.4); Monocytes % (Auto) 16.1 % (1.0-12.0); Platelet Count 238 K/mcL (140-440); RBC 4.24 M/mcL (4.63-6.08); Red Cell Distribution Width 17.1 % (11.5-14.5); WBC 6.9 K/mcL (4.50-11.00)
[2019-12-16 07:43] LABS: ALT/SGPT 12 U/l (0-40); AST/SGOT 11 U/l (0-37); Albumin 3.2 gm/dL (3.2-5.2); Albumin/Globulin Ratio 1.2 (1.0-2.3); Alkaline Phosphatase 66 U/L (39-117); Bilirubin,Direct < 0.2 mg/dL (0.0-0.3); Bilirubin,Total 0.3 mg/dL (0.0-1.0); Blood Urea Nitrogen 12 mg/dl (8-23); Calcium 8.7 mg/dl (8.6-10.4); Carbon Dioxide 24 mmol/L (22-30); Chloride 104 mmol/L (96-108); Globulin 2.7 gm/dL (2.2-3.7); Glomerular Filtration Rate 87; Glucose 93 mg/dL (70-105); Lactate Dehydrogenase 147 U/L (94-250); Triglycerides 88 mg/dl (<150); Uric Acid 3.9 mg/dL (2.5-8.0)
[2019-12-16] MEDS: LOSARTAN 25 MG TABLET PO SCH ×2 (09:03→21:29)
[2019-12-16] MEDS: ENOXAPARIN 40 MG/0.4 ML SYRINGE SQ SCH (09:03)
[2019-12-16] MEDS: SERTRALINE 100 MG TABLET PO SCH (09:03)
[2019-12-16] MEDS: Budesonide/Formoterol Fumarate [Symbicort 160-4.5 MCG] Inhaler PO SCH ×2 (09:06→21:29)
[2019-12-16] MEDS: TIOTROPIUM BROMIDE 18 MCG INHALANT INH SCH (09:06)
[2019-12-16] MEDS ORDERED: KETAMINE 100 MG/ML ML IV ONE (11:53)
[2019-12-16] MEDS ORDERED: GLYCOPYRROLATE 0.2 MG/ML VIAL IV ONE (11:53)
[2019-12-16] MEDS ORDERED: MIDAZOLAM 2 MG/2 ML VIAL IV ONE (11:53)
[2019-12-16] MEDS ORDERED: ONDANSETRON 4 MG/2 ML VIAL IV ONE (11:53)
[2019-12-16] MEDS ORDERED: fentaNYL 100 MCG/2 ML VIAL IV ONE (11:53)
[2019-12-16] MEDS ORDERED: ROPIVACAINE HCL/PF 30 ML VIAL IJ ONE (11:53)
[2019-12-16] MEDS ORDERED: PROPOFOL 200 MG/20 ML VIAL IV ONE (11:53)
[2019-12-16] MEDS ORDERED: LIDOCAINE HCL/PF 100 MG/5 ML SYRINGE IV ONE (11:53)
[2019-12-16] MEDS ORDERED: DEXAMETHASONE 10 MG/ML VIAL IV ONE (11:53)
[2019-12-16] MEDS ORDERED: BACITRACIN 50,000 UNIT VIAL IR ONE (12:30)
[2019-12-16] MEDS ORDERED: IPRATROPIUM/ALBUTEROL 3 ML AMPUL.NEB NEB PRN ×2 (13:23→14:57)
[2019-12-16] MEDS ORDERED: ACETAMINOPHEN 1,000 MG/100 ML BOTTLE IV ONE (13:23)
[2019-12-16] MEDS ORDERED: ONDANSETRON 4 MG/2 ML VIAL IV PRN ×3 (13:23→14:57)
[2019-12-16] MEDS ORDERED: fentaNYL 100 MCG/2 ML VIAL IV PRN ×2 (13:23→14:57)
[2019-12-16] MEDS ORDERED: MEPERIDINE 50 MG/ML INJECTION IM PRN ×2 (13:23→14:57)
[2019-12-16] MEDS ORDERED: MEPERIDINE 25 MG/ML SYRINGE IV PRN ×2 (13:23→14:57)
[2019-12-16] MEDS ORDERED: PROMETHAZINE 25 MG/ML VIAL IM PRN ×2 (13:23→14:57)
[2019-12-16] MEDS ORDERED: LACTATED RINGERS 1,000 ML IV SCH ×2 (13:30→14:57)
--- NOTE | 2019-12-16 14:03 | Brief Operative Note ---
Date of procedure: 12/16/19 Pre-op diagnosis: left inguinal hernia Post-op diagnosis: other (left inguinal hernia ,incarcerated) Procedure: left inguinal hernia repair Grafts/Implants: Yes (surgimesh) Anesthesia: GLMA Findings: incarcerated left inguinal hernia with incarcerated lipoma of cord Complications: none Surgeon: Yaquelin Schaefer Estimated blood loss (cc): 20 Specimens Removed/Pathology: none sent Condition: stable Disposition: PACU
[2019-12-16] MEDS ORDERED: ALBUTEROL SULFATE 1 PUFF INHALER INH PRN (14:57)
[2019-12-16] MEDS ORDERED: ALBUTEROL SULFATE 2.5 MG/3 ML NEBULIZER NEB PRN (14:57)
[2019-12-16] MEDS: HYDROmorphone 2 MG/ML VIAL IV PRN (17:55)
[2019-12-17] MEDS: HYDROmorphone 2 MG/ML VIAL IV PRN (00:51)
[2019-12-17] MEDS: HYDROcodone/APAP 10/325MG TABLET PO PRN ×2 (04:56→16:18)
[2019-12-17] MEDS: LOSARTAN 25 MG TABLET PO SCH (08:10)
[2019-12-17] MEDS: Budesonide/Formoterol Fumarate [Symbicort 160-4.5 MCG] Inhaler PO SCH (08:13)
[2019-12-17] MEDS ORDERED: SERTRALINE 100 MG TABLET PO SCH (09:00)
[2019-12-17] MEDS ORDERED: TIOTROPIUM BROMIDE 18 MCG INHALANT INH SCH (09:00)
[2019-12-17] MEDS: 0.9 % SODIUM CHLORIDE 10 ML SYRINGE IV SCH (11:51)
--- NOTE | 2019-12-17 16:38 | Discharge Summary ---
Providers - Providers Patient information: Note initiated : 12/17/19 at 4:35 pm Service Date, if different from initiated Date: [] Patient: Gavin Nunez 69 y/o M admitted on 12/14/19 for Possible hernia,generalized weakness. Chief Complaint: [] Date of admission: 12/12/19 Discharge date: 12/17/19 Attending physician: Yaquelin Schaefer Hospitalization Hospital Course: 61-year-old male admitted for pain and leukocytosis. He was seen in the emergency room. He was noted to have a white count of 18,000 but was afebrile. Consideration for incarceration of left inguinal hernia was carried out. When I evaluated the patient. The hernia was frequently movable and reducible. He was observed overnight. Today and he continued to have severe pain. Plan was made for repair of left inguinal hernia. The patient had been on APIXABAN which needed to be held. The family left inguinal hernia repair on yesterday. He was noted to have reduction in his: Blood. There was a large indirect lipoma cord that was incarcerated and inflamed. This was reduced back into the peritoneal cavity. Standard plug and mesh overlay hernia repair was carried out. Patient feels better today and has less discomfort. He is stable for discharge home. Discharge diagnosis: incarcerated left inguinal hernia Secondary discharge diagnosis: Chronic obstructive lung disease. Seropositive rheumatoid arthritis. Compensated congestive heart failure. Chronic renal failure stage III. Immunocompromised drug use long-term. Paroxysmal atrial fibrillation and flutter Reason for admission: severe abdominal pain, incarcerated hernia, leukocytosis Procedures: December 07 left inguinal hernia repair Complications: None Exam Temp Pulse Resp BP Pulse Ox 97.7 F 48 L 20 108/60 97 12/17/19 16:00 12/17/19 03:16 12/17/19 16:00 12/17/19 16:00 12/17/19 16:00 - General physical appearance well developed, well nourished, no distress - Eyes PERRL, normal ocular movement - ENT normal pinna, normal nares, normal mucosa, no hearing loss, no congestion - Head Head exam IM: Present: atraumatic, normocephalic - Neck no masses, no bruits, trachea midline, no lymphadenopathy, no venous distension - Cardiovascular Cardiovascular exam IM: Present: normal rate and rhythm - Respiratory normal expansion, normal respiratory effort, clear to percussion, clear to auscultation - Abdomen Abdomen: Present: soft, tender (mild tenderness left lower quadrant), bowel sounds Hernia: Present: none, inguinal (operative site is healing uneventfully) - Genitourinary Present: normal penis with no external lesions - Integumentary Present: no rash, no growths, no abnormal pigmentation - Neurologic Present: normal coordination, normal sensation - Musculoskeletal Present: normal gait, normal posture - Psychiatric Present: oriented to time, oriented to person, oriented to place, speech is normal, memory intact Discharge Plan - Patient/Caregiver Discharge Instructions Activity: increase activity as tolerated Diet: Regular Diet (ultrasound no) Prescriptions: HYDROcodone/APAP 10/325MG [[place] 10-325Mg] 1 tab PO QIDP PRN #60 tab PRN Reason: Pain Transmission Status: Received by [facility] - Follow up Plan Follow up with: Millie Power ARNP [Primary Care Provider] - Yaquelin Schaefer MD [Physician] - 12/29/19 9:30 am Disposition: Home, Self-Care Prognosis: Good Rehab Potential: Good (which was) I certify that the patient requires SNF services.: No Overall status at discharge: patient is progressing back to baseline Pending Studies Resuscitation Status Full Code Diet Regular Diet Start SatDec 16 1501 Hydrocodone Bitart/Acetaminophen ([place] 10/325mg) 1 tab PO QIDP PRN; Protocol PRN Reason: Pain Last Admin: 12/17/19 16:18 Dose: 1 tab Documented by: [email or web address] Admin: 12/17/19 04:56 Dose: 1 tab Documented by: Admin: 12/16/19 21:38 Dose: 1 tab Documented by: Admin: 12/16/19 15:04 Dose: 1 tab Documented by: JOANN Hydromorphone HCl (Dilaudid) 1 mg IV Q2HP PRN; Protocol PRN Reason: Per Pain Protocol Last Admin: 12/17/19 00:51 Dose: 1 mg Documented by: Admin: 12/16/19 17:55 Dose: 1 mg Documented by: JOANN Losartan Potassium (Cozaar) 25 mg PO BID JAYNA Last Admin: 12/17/19 08:10 Dose: 25 mg Documented by: [email or web address] Admin: 12/16/19 21:29 Dose: 25 mg Documented by: ELIANA Budesonide/Formoterol Fumarate [Symbicort 160-4.5 Mcg] Inhaler 1 dose PO BID [facility] Last Admin: 12/17/19 08:13 Dose: 1 dose Documented by: Admin: 12/16/19 21:29 Dose: 1 dose Documented by: ELIANA Sertraline HCl (Zoloft) 100 mg PO QDAY [facility] Last Admin: 12/17/19 08:10 Dose: 100 mg Documented by: CONSTANTINE Sodium Chloride (Saline Flush) 10 ml IV Q8 [facility] Last Admin: 12/17/19 11:51 Dose: Not Given Documented by: Admin: 12/16/19 21:30 Dose: 10 ml Documented by: ELIANA Tiotropium [place] (Spiriva) 18 mcg INH QDAY [facility] Last Admin: 12/17/19 08:13 Dose: 1 puff Documented by: CONSTANTINE Shift Summary 12/17/19 02:57 Shift Summary by Alysas Bunn Slept well after midnight. Has been up ad kaden in room & halls. Voiding per urinal. Tolerating reg diet w/o nausea. Groin site w/barrett & tegaderm; scant drainage. Had dilaudid once & [place] once. He is hoping to go home today Initialized on 12/17/19 02:57 - END OF NOTE
--- NOTE | 2019-12-22 14:00 | Operative Note ---
DATE OF OPERATION: 12/16/2019 PREOPERATIVE DIAGNOSIS: Left inguinal hernia. POSTOPERATIVE DIAGNOSIS: Incarcerated left inguinal hernia. PROCEDURE: Left inguinal hernia repair. SURGEON: Yaquelin Schaefer M.D. FINDINGS: Incarcerated left inguinal hernia with incarcerated lipoma of the cord. DESCRIPTION OF PROCEDURE: Under general anesthesia, the patient was prepped and draped in a sterile field. A time-out procedure was carried out as per protocol. Curvilinear incision was made in the left inguinal area. It was extended through the superficial fascia to the aponeurosis. The aponeurosis was opened in the line of its fibers. There was bulging of the aponeurosis. There was a large lipoma that was incarcerated in the hernia sac. There were also two smaller lipomas. The smaller lipomas were dissected back to the internal ring, clamped and resected x3. They were discarded. The bases were tied with 3-0 Vicryl. The larger lipoma was dissected back to the internal ring and was reduced into the preperitoneal space after opening the neck of the sac. The sac was then closed with 2-0 Monocryl. A plug was placed in the internal ring to assure reduction of the lipoma. The plug was sutured in place circumferentially with 2-0 Prolene. Onlay patch was placed and was sutured circumferentially with 2-0 Prolene. The cord was placed in anatomic position and the aponeurosis was closed with 2-0 Monocryl. Superficial fascia was closed with 3-0 Vicryl. The skin was closed with barrett. Tegaderm dressings were placed. The patient tolerated the procedure well. He was awakened and transferred to a bed and taken to the postanesthetic care unit in stable, satisfactory condition. LCS:[email or web address] Job ID: [id number] Doc ID: [id number] Yaquelin Schaefer M.D.
== END 2019-12-17 17:27 | disposition home or self-care (01) | DRG 351 ==
LOC: MEDSUR 16:37 → ED 16:37 → MEDSUR 23:58
PROVIDERS: ADMIT Family Medicine Adult Medicine; ATTEND Family Medicine Adult Medicine